=== PATIENT | male | born 1950 | race Asian ===

== ENCOUNTER 2018-01-14 14:15 | Emergency (ER) | payer SELFPAY ==
[~2018-01-14] VITALS: Ht 177.8 cm; Wt 90.5 kg
[2018-01-14 14:23] VITALS: BP 145/89
== END 2018-01-14 15:14 | disposition left against medical advice (07) ==
LOC: EMS 14:16
DX: K08.89 Other specified disorders of teeth and supporting structures (principal); Z53.21 Procedure and treatment not carried out due to patient leaving prior to being seen by health care provider